=== PATIENT | female | born 1940 | race Caucasian/White ===

== ENCOUNTER 2016-05-26 09:52 | Emergency (ER) | payer OTHER, MEDICARE ==
[2016-05-26 10:06] VITALS: O2SAT 93
--- NOTE | 2016-05-26 11:22 | EDPHY ---
General Narrative: CHIEF COMPLAINT: Fall, knee pain HISTORY OF PRESENT ILLNESS: Patient says she was exiting her residence today when she slipped on the ice and fell on her right knee. She fell directly on the knee with bent. She knows sudden onset of pain in that knee. Some mild to moderate pain. Does not radiate. Worse with palpation and ambulation. It is minimal compared to the pain in the left knee she has after falling again later. Left knee fell with a described valgus injury. She has pain primarily over the medial aspect of the left knee that is moderate to severe. It is also worse with palpation and movement. Improved with rest and elevation. No radiating pain. No numbness or tingling. No weakness distally. She is primarily complains she has status post bilateral total knee arthroplasty and wants to make sure that her hardware is intact no other associated complaints or modifying factors. PRIOR ORTHO INJURIES: Bilateral TKAs ESTABLISHED ORTHOPEDIST: Dr. Darling REVIEW OF SYSTEMS: Ten systems reviewed and are negative unless otherwise noted in the HPI EXAMINATION General Appearance: Alert, no distress Cardiovascular: Pulses normal throughout. Symmetric DP pulses at 2+. Symmetric PT pulses are 2+. Brisk cap refill Neurological: A&O, sensory symmetric, strength symmetric Skin: Warm and dry, no rash. No lacerations, abrasions or contusions. There are well-healed surgical incisions on both knees consistent with DKA. Extremities: Both knees are tender to palpation. The right knee more so along the joint line. There is no crepitus of either knee. There is no instability of either knee. The left knee has more tenderness over the MCL than otherwise. There is no difficulty with range of motion. In range of motion is symmetric in both knees. Range of motion of both ankles and hips are fully intact. All compartments are soft in the lower extremities. Neurovascular intact distal to the knee pain. Psychiatric: Mood and affect normal DIFFERENTIAL DIAGNOSES: Including but not limited to contusion, sprain, strain, fracture, hardware injury MDM: 11:20 a.m. Mechanical fall that resulted in contusion of the right knee and I suspect an MCL sprain of the left knee. Hardware is in anatomic alignment on the x-rays. There is no obvious fracture. She does have degeneration/osteoarthritis of both knees. She is ambulating without complication. No evidence of fracture anywhere else by examination or history. Discharged home with Zuiel wrap over the left knee and she will follow up with her established orthopedist Dr. wilde with. Patient is comfortable this plan, she is discharged home ambulatory and neurovascular intact ED Precautions: Worsening pain. Erythema, edema, cyanosis, pallor, paresthesia or anesthesia. SUPERVISION: This patient was independently evaluated without direct examination by the attending physician. Case was discussed with attending physician. - Diagnostics Imaging: I viewed and interpreted images myself Imaging Results: Imaging Impressions Knee X-Ray 05/26/16 10:16 Impression: 1. Negative. No acute fracture. 2. Bilateral knee arthroplasties are anatomically aligned. Knee X-Ray 05/26/16 10:18 Impression: 1. Negative. No acute fracture. 2. Bilateral knee arthroplasties are anatomically aligned. - History Smoking Status: Never smoked - Objective Vital Signs: Initial Vital Signs Temperature (C) 98.1 F 05/26/16 10:04 Heart Rate 92 05/26/16 10:04 Respiratory Rate 20 05/26/16 10:04 Blood Pressure 172/96 H 05/26/16 10:04 O2 Sat (%) 93 05/26/16 10:04 O2 Delivery Mode Room Air Allergies/Adverse Reactions: amoxicillin [Amoxicillin] Allergy (Intermediate, Verified 05/26/16 10:00) Rash methylprednisolone [Methylprednisolone] Allergy (Intermediate, Verified 10:00) [place] Home Medications: Medication Instructions Recorded Cyclobenzaprine [Flexeril 10 MG 10 mg PO HS 07/20/13 (*)] Propranolol HCl [Inderal 20mg (*)] 20 mg PO DAILY 07/20/13 Zolpidem Tartrate [Ambien 5MG (*)] 5 mg PO HS 07/20/13 metFORMIN HCL [Glucophage 500 mg 500 mg PO BIDMEAL 07/20/13 (*)] LORazepam [Ativan (*)] 1 mg PO DAILY PRN 08/15/14 Omeprazole [Prilosec] 40 mg PO DAILY 08/15/14 Pravastatin Sodium [Pravachol] 10 mg PO HS 08/15/14 glipiZIDE XL [Glucotrol XL 10 MG 10 mg PO DAILY 08/15/14 (*)] Guaifenesin [Guaifenesin ER] 600 mg PO BID #14 tab.er.12h 11/04/16 IBUPROFEN 12/26/15 Departure - Departure Disposition: Home, Routine, Self-Care Clinical Impression: Contusion of knee, right Qualifiers: Encounter type: initial encounter Qualified Code(s): S80.01XA - Contusion of right knee, initial encounter Contusion of left knee Qualifiers: Encounter type: initial encounter Qualified Code(s): S80.02XA - Contusion of left knee, initial encounter Sprain of medial collateral ligament of left knee Qualifiers: Encounter type: initial encounter Qualified Code(s): S83.412A - Sprain of medial collateral ligament of left knee, initial encounter Condition: Good Instructions: Knee Sprain (ED), Osteoarthritis (ED), Knee Pain (ED) Additional Instructions: Ice and elevate the leg today. Weightbearing as tolerated. Follow up with established orthopedist. Return to ER for any new areas of pain Referrals: Mariano Darling MD [Medical Doctor] - As per Instructions
[2016-05-26 12:03] VITALS: BP 159/95; PULSE 90; RESP 18; TEMP 97.9
== END 2016-05-26 12:01 | disposition home or self-care (01) ==
DX: S83.412A Sprain of medial collateral ligament of left knee, initial encounter (principal); S80.01XA Contusion of right knee, initial encounter; S80.02XA Contusion of left knee, initial encounter; Z96.653 Presence of artificial knee joint, bilateral; W00.9XXA Unspecified fall due to ice and snow, initial encounter

== ENCOUNTER → 2016-06-08 | Outpatient (CLI) | payer OTHER, MEDICARE | LOC: FIMAGING 11:57 | DX: Z12.31 Encounter for screening mammogram for malignant neoplasm of breast (principal) | CPT/HCPCS: G0202 ==

== ENCOUNTER 2016-12-26 07:15 | Emergency (ER) | payer OTHER, MEDICARE ==
[2016-12-26 07:24] VITALS: TEMP 97.9
[2016-12-26] MEDS ORDERED: NS 1,000 ML IV ONE (08:05)
[2016-12-26 08:22] LABS: PLATELET COUNT 225 10^3/uL (150-400)
--- NOTE | 2016-12-26 08:22 | EDPHY ---
H & P Time Seen by Provider: 12/26/16 07:47 HPI/ROS: CHIEF COMPLAINT: Cough, headache HISTORY OF PRESENT ILLNESS: 76-year-old female presents with cough and headache. Onset of nasal congestion and sore throat 3 days ago. Associated with a productive cough, onset 2 days ago. She also has a moderate headache, which waxes and wanes. Associated with subjective fever last night, lack of appetite and nausea. No vomiting or diarrhea. She received a flu vaccination this year. REVIEW OF SYSTEMS: Constitutional: no chills Eyes: No visual changes ENT: No sore throat Respiratory: no shortness of breath Cardiac: No chest pain Gastrointestinal: No nausea, no vomiting, no abdominal pain Genitourinary: no dysuria Musculoskeletal: No leg pain or swelling Skin: No rash Neurological: no numbness, no weakness Psychiatric: No depression Past Medical/Surgical History: Diabetes Pneumonia Social History: PCP: Dr. Meza Smoking Status: Never smoked Physical Exam: General Appearance: Alert, pleasant, reading the newspaper as I enter the room Eyes: Pupils equal and round, no conjunctival pallor or injection ENT, Mouth: Mucous membranes moist, right TM occluded by cerumen, left EM normal Neck: Normal inspection, supple Respiratory: Lungs are clear to auscultation Cardiovascular: Regular rate and rhythm Gastrointestinal: Abdomen is soft and nontender Neurological: A&O, nonfocal, normal gait Skin: Warm and dry, no rash Extremities: normal inspection Psychiatric: Mood and affect normal Constitutional: Initial Vital Signs Temperature (C) 36.6 C 12/26/16 07:21 Heart Rate 121 H 12/26/16 07:21 Respiratory Rate 20 12/26/16 07:21 Blood Pressure 169/82 H 12/26/16 07:21 O2 Sat (%) 95 12/26/16 07:21 O2 Delivery Mode Room Air Allergies/Adverse Reactions: amoxicillin [Amoxicillin] Allergy (Intermediate, Verified 12/26/16 07:19) Rash methylprednisolone [Methylprednisolone] Allergy (Intermediate, Verified 07:19) [place] Home Medications: Medication Instructions Recorded Cyclobenzaprine [Flexeril 10 MG 10 mg PO HS 07/20/13 (*)] Propranolol HCl [Inderal 20mg (*)] 20 mg PO DAILY 07/20/13 Zolpidem Tartrate [Ambien 5MG (*)] 5 mg PO HS 07/20/13 metFORMIN HCL [Glucophage 500 mg 500 mg PO BIDMEAL 07/20/13 (*)] LORazepam [Ativan (*)] 1 mg PO DAILY PRN 08/15/14 Omeprazole [Prilosec] 40 mg PO DAILY 08/15/14 Pravastatin Sodium [Pravachol] 10 mg PO HS 08/15/14 glipiZIDE XL [Glucotrol XL 10 MG 10 mg PO DAILY 08/15/14 (*)] IBUPROFEN 12/26/15 guaiFENesin [Guaifenesin ER] 600 mg PO BID #14 tab.er.12h 12/26/15 Doxycycline Hyclate 100 mg PO BID #20 tablet 12/26/16 Ondansetron Odt [Zofran Odt 4 mg 4 mg PO Q4 PRN #6 tab 12/26/16 (*)] Medical Decision Making - Diagnostics Imaging Results: Imaging Impressions Chest X-Ray 12/26/16 08:17 Impression: No acute findings in the chest. ED Course/Re-evaluation: Clinical presentation concerning for pneumonia. She presents with tachycardia, subjective fever and cough. She is afebrile. IV fluids given for dehydration. Chest x-ray and flu swab ordered. I do not suspect meningitis in this patient , given that she is reading a newspaper, smiling and is nontoxic appearing. Results discussed with the patient. She feels better after IV fluids. I have encouraged oral fluids at home. Given her history of diabetes and advanced age , I wrote a prescription for doxycycline for clinical suspicion of pneumonia. She will return for shortness of breath, worsening symptoms, any concerns. PCP follow-up in 1-2 days. Differential Diagnosis: Differential diagnosis includes but is not limited to pneumonia, otitis media, peritonsillar abscess, retropharyngeal abscess, meningitis. - Data Points Laboratory Results: Laboratory Results 12/26/16 08:00 12/26/16 08:00 12/26/16 12/26/16 12/26/16 08:25 08:25 08:00 WBC RBC Hgb Hct MCV MCH MCHC RDW Plt Count MPV Neut % (Auto) Lymph % (Auto) [place] % (Auto) Eos % (Auto) Baso % (Auto) Nucleat RBC Rel Count Absolute Neuts (auto) Absolute Lymphs (auto) Absolute Monos (auto) Absolute Eos (auto) Absolute Basos (auto) Absolute Nucleated RBC Immature Gran % Immature Gran # VBG Lactic Acid 1.3 mmol/L mmol/L (0.7-2.1) Sodium 140 mEq/L mEq/L (134-144) Potassium 4.1 mEq/L mEq/L (3.5-5.2) Chloride 107 mEq/L mEq/L (97-110) Carbon Dioxide 22 mEq/l mEq/l (22-31) Anion Gap 11 mEq/L mEq/L (8-16) BUN 10 mg/dL mg/dL (7-23) Creatinine 0.7 mg/dL mg/dL (0.6-1.0) Estimated GFR > 60 Glucose 152 mg/dL H mg/dL (70-100) Calcium 9.2 mg/dL mg/dL (8.5-10.4) Nasal Influenza A PCR NEGATIVE FOR FLU A (NEGATIVE) Nasal Influenza B PCR NEGATIVE FOR FLU B (NEGATIVE) 12/26/16 08:00 WBC 8.33 10^3/uL 10^3/uL (3.80-9.50) RBC 4.83 10^6/uL 10^6/uL (4.18-5.33) Hgb 15.3 g/dL g/dL (12.6-16.3) Hct 43.6 % % (38.0-47.0) MCV 90.3 fL fL (81.5-99.8) MCH 31.7 pg pg (27.9-34.1) MCHC 35.1 g/dL g/dL (32.4-36.7) RDW 13.4 % % (11.5-15.2) Plt Count 225 10^3/uL 10^3/uL (150-400) MPV 10.3 fL fL (8.7-11.7) Neut % (Auto) 73.6 % % (39.3-74.2) Lymph % (Auto) 14.5 % L % (15.0-45.0) [place] % (Auto) 9.2 % % (4.5-13.0) Eos % (Auto) 1.9 % % (0.6-7.6) Baso % (Auto) 0.4 % % (0.3-1.7) Nucleat RBC Rel Count 0.0 % % (0.0-0.2) Absolute Neuts (auto) 6.13 10^3/uL 10^3/uL (1.70-6.50) Absolute Lymphs (auto) 1.21 10^3/uL 10^3/uL (1.00-3.00) Absolute Monos (auto) 0.77 10^3/uL 10^3/uL (0.30-0.80) Absolute Eos (auto) 0.16 10^3/uL 10^3/uL (0.03-0.40) Absolute Basos (auto) 0.03 10^3/uL 10^3/uL (0.02-0.10) Absolute Nucleated RBC 0.00 10^3/uL 10^3/uL (0-0.01) Immature Gran % 0.4 % % (0.0-1.1) Immature Gran # 0.03 10^3/uL 10^3/uL (0.00-0.10) VBG Lactic Acid Sodium Potassium Chloride Carbon Dioxide Anion Gap BUN Creatinine Estimated GFR Glucose Calcium Nasal Influenza A PCR Nasal Influenza B PCR Medications Given: Discontinued Medications Sodium Chloride (Ns) 1,000 mls @ 0 mls/hr IV ONCE ONE PRN Reason: Wide [place] Stop: 12/26/16 08:06 Last Admin: 12/26/16 08:15 Dose: 1,000 mls Ibuprofen (Motrin) 600 mg PO EDNOW ONE Stop: 12/26/16 08:54 Last Admin: 12/26/16 08:59 Dose: 600 mg Departure - Departure Disposition: Home, Routine, Self-Care Clinical Impression: Acute bronchitis Qualifiers: Bronchitis organism: unspecified organism Qualified Code(s): J20.9 - Acute bronchitis, unspecified Condition: Good Instructions: Acute Bronchitis (ED) Additional Instructions: Drink plenty of fluids. Ibuprofen as needed for fever and headache. Return for worsening symptoms or any concerns. Referrals: Mindy Meza MD [Primary Care Provider] - As per Instructions Prescriptions: Doxycycline Hyclate 100 mg PO BID #20 tablet Ondansetron Odt [Zofran Odt 4 mg (*)] 4 mg PO Q4 PRN #6 tab PRN Reason: Nausea
[2016-12-26] MEDS ORDERED: IBUPROFEN 600 MG TAB PO ONE (08:53)
[2016-12-26 09:03] VITALS: BP 140/90; PULSE 95; RESP 16; O2SAT 96
== END 2016-12-26 09:04 | disposition home or self-care (01) ==
LOC: SUPCPDRO 07:15
DX: J20.9 Acute bronchitis, unspecified (principal); E11.9 Type 2 diabetes mellitus without complications

== ENCOUNTER 2017-02-16 10:13 | Emergency (ER) | payer OTHER, MEDICARE ==
[2017-02-16 10:23] VITALS: BP 157/106; PULSE 100; RESP 16; TEMP 98.1; O2SAT 93
--- NOTE | 2017-02-16 10:32 | EDPHY ---
H & P Stated Complaint: R arm pain Time Seen by Provider: 02/16/17 10:26 HPI/ROS: CHIEF COMPLAINT: Right shoulder pain HISTORY OF PRESENT ILLNESS: The patient presents to the ED with complaints of mechanical right shoulder pain for the past 2 days. The patient may have injured the shoulder while lifting a ladder or driving her vehicle. She did not have a direct fall or trauma. The patient reports it is painful to sleep on her right shoulder. She denies fever or recent illness. She is not anticoagulated. The patient denies any associated numbness or weakness. REVIEW OF SYSTEMS: A comprehensive 10 point review of systems is otherwise negative aside from elements mentioned in the history of present illness. Source: Patient Exam Limitations: No limitations - Personal History Current Tetanus/Diphtheria Vaccine: Yes Current Tetanus Diphtheria and Acellular Pertussis (TDAP): Yes Tetanus Vaccine Date: 02/2010 - Medical/Surgical History Hx Asthma: No Hx Chronic Respiratory Disease: No Hx Diabetes: Yes Hx Cardiac Disease: Yes Hx Renal Disease: No Hx Cirrhosis: No Hx Alcoholism: No Hx HIV/AIDS: No Hx Splenectomy or Spleen Trauma: No Other PMH: HTN elevated lipids,GERD,NIDDM type 2, thyroid surgery 08/04, hysterecytomy, tonsillectomy, bilat knee replacement, appendectomy, cholecystectomy - Social History Smoking Status: Never smoked - Physical Exam Exam: General Appearance: Alert, no distress Eyes: Pupils equal and round no pallor or injection ENT, Mouth: Mucous membranes moist Respiratory: There are no retractions, lungs are clear to auscultation Cardiovascular: Regular rate and rhythm Gastrointestinal: Abdomen is soft and nontender, no masses, bowel sounds normal Neurological: A&O, normal motor function, normal sensory exam, normal cranial nerves Skin: Warm and dry, no rashes Musculoskeletal: Neck is supple nontender Extremities: Tenderness to palpation over the right proximal biceps, 2+ radial and ulnar pulses noted in the right upper extremity Constitutional: Initial Vital Signs Temperature (C) 36.7 C 02/16/17 10:20 Heart Rate 100 02/16/17 10:20 Respiratory Rate 16 02/16/17 10:20 Blood Pressure 157/106 H 02/16/17 10:20 O2 Sat (%) 93 02/16/17 10:20 O2 Delivery Mode Room Air Allergies/Adverse Reactions: amoxicillin [Amoxicillin] Allergy (Intermediate, Verified 02/16/17 10:18) Rash methylprednisolone [Methylprednisolone] Allergy (Intermediate, Verified 10:18) [place] Home Medications: Medication Instructions Recorded Propranolol HCl [Inderal 20mg (*)] 20 mg PO DAILY 07/20/13 Zolpidem Tartrate [Ambien 5MG (*)] 5 mg PO HS 07/20/13 metFORMIN HCL [Glucophage 500 mg 500 mg PO BIDMEAL 07/20/13 (*)] LORazepam [Ativan (*)] 1 mg PO DAILY PRN 08/15/14 Omeprazole [Prilosec] 40 mg PO DAILY 08/15/14 Pravastatin Sodium [Pravachol] 10 mg PO HS 08/15/14 glipiZIDE XL [Glucotrol XL 10 MG 10 mg PO DAILY 08/15/14 (*)] guaiFENesin [Guaifenesin ER] 600 mg PO BID #14 tab.er.12h 12/26/15 Hydrocodone/APAP 5/325 [[place] 1 - 2 each PO Q6 PRN #20 tab 02/16/17 5/325] Medical Decision Making - Diagnostics Imaging Results: Right shoulder x-ray: Images reviewed by myself, negative for acute fracture, DJD is noted. ED Course/Re-evaluation: The patient presents to the emergency department with right shoulder pain. She has no evidence of an obvious fracture noted on her x-ray but does have mild DJD. Her examination is consistent with a biceps tendon strain. The patient will be advised to take anti-inflammatories. She is given a prescription for Vicodin for more severe pain. She should follow up with her regular orthopedic surgeon for any unimproved symptoms. Departure - Departure Disposition: Home, Routine, Self-Care Clinical Impression: Right shoulder strain Condition: Good Instructions: Rotator Cuff Injury (ED) Additional Instructions: 1. Take Ibuprofen or Motrin 600 mg by mouth three times a day. 2. [place] as needed for severe pain 3. Please follow up with your orthopedic surgeon for any symptoms which are unimproved past 7-10 days. Referrals: Mariano Darling MD [Medical Doctor] - As per Instructions
== END 2017-02-16 11:15 | disposition home or self-care (01) ==
DX: S46.911A Strain of unspecified muscle, fascia and tendon at shoulder and upper arm level, right arm, initial encounter (principal); I10 Essential (primary) hypertension; E11.9 Type 2 diabetes mellitus without complications; Z79.84 Long term (current) use of oral hypoglycemic drugs; X58.XXXA Exposure to other specified factors, initial encounter

== ENCOUNTER 2017-04-16 19:19 | Inpatient (IN) | payer OTHER, MEDICARE ==
[2017-04-16] MEDS ORDERED: IPRATROPIUM/ALBUTEROL 3 ML DEYVIAL IH ONE (19:42)
--- NOTE | 2017-04-16 19:42 | EDPHY ---
H & P Time Seen by Provider: 04/16/17 19:35 HPI/ROS: CHIEF COMPLAINT: Cough and shortness of breath HISTORY OF PRESENT ILLNESS: Patient initially got sick about a week ago and was seen on Tuesday at urgent care and diagnosed with pneumonia and just finished 5 days of oral Levaquin. She presents today with severe symptoms including nonproductive cough and worsening shortness of breath. No sputum and intermittent fever. Chest pain with the cough but not at rest. She has a little bit of nausea and decreased oral intake. Shortness of breath severe and is worse with any exertion. Not associated with leg swelling or leg pain. No hemoptysis. No recent travel or immobilization and no history of DVT or PE. REVIEW OF SYSTEMS: Eye: no change in vision ENT: no sore throat Cardiac: HPI no syncope Pulmonary: HPI, she says she is very wheezy and is been up at night hearing herself wheeze. Abdomen: no vomiting, diarrhea, abdominal pain, decreased oral intake Musculoskeletal: no back pain Skin: no rash Neuro: no headache Constitutional: Subjective fever and chills : no urinary symptoms A comprehensive 10 point review of systems is otherwise negative aside from elements mentioned in the history of present illness. PAST MEDICAL HISTORY: Includes hypertension, diabetes, thyroid surgery, hysterectomy and tonsillectomy, appendectomy and cholecystectomy. Knee replacements. Social history: Nonsmoker General Appearance: Alert and conversant, cooperative. Eyes: No scleral icterus. ENT, Mouth: Normal mucous membranes. Respiratory: Bilateral slight expiratory wheezes, able to speak in full sentences on oxygen, 89% on room air. Cardiovascular: Regular rate and rhythm. Tachycardic Gastrointestinal: Abdomen is soft and non tender. Neurological: Alert, face symmetric, normal motor and sensory in extremities. Skin: Warm and dry, no rashes. Musculoskeletal: No peripheral edema. Psychiatric: Not agitated. Emergency Department course/MDM: Patient presents with need for admission, with outpatient failure of pneumonia. Tachycardia and hypoxemic, supplemental oxygen applied for saturation in the 80s. Plan for chest x-ray and lactate screening, CBC and chemistries. Respiratory panel. 2043: No pneumonia on chest x-ray, albuterol neb and states allergy to methylprednisolone, think pulmonary embolism would be less likely. For now will hold off on steroids, supportive care, D-dimer sent. At this point I think that viral infection such as influenza or other respiratory illnesses likely, I think pneumonia is less likely. I do not think she has acute infection and antibiotics are not currently indicated given the clinical picture at this time. 2101: D-dimer is 0.67 which is less than point 1 times age, do not think further evaluation for pulmonary embolism indicated with this value. Relatively low pretest probability for venous thromboembolism. Smoking Status: Never smoked Constitutional: Initial Vital Signs Temperature (C) 36.7 C 04/16/17 19:23 Heart Rate 119 H 04/16/17 19:23 Respiratory Rate 18 04/16/17 19:23 Blood Pressure 177/90 H 04/16/17 19:23 O2 Sat (%) 89 L 04/16/17 19:23 O2 Delivery Mode Room Air O2 (L/minute) 2 Allergies/Adverse Reactions: amoxicillin [Amoxicillin] Allergy (Intermediate, Verified 04/16/17 19:26) Rash methylprednisolone [Methylprednisolone] Allergy (Intermediate, Verified 19:26) [place] Home Medications: Medication Instructions Recorded Propranolol HCl [Inderal 20mg (*)] 20 mg PO DAILY 07/20/13 Zolpidem Tartrate [Ambien 5MG (*)] 5 mg PO HS 07/20/13 metFORMIN HCL [Glucophage 500 mg 500 mg PO BIDMEAL 07/20/13 (*)] LORazepam [Ativan (*)] 1 mg PO DAILY PRN 08/15/14 Omeprazole [Prilosec] 40 mg PO DAILY 08/15/14 Pravastatin Sodium [Pravachol] 10 mg PO HS 08/15/14 glipiZIDE XL [Glucotrol XL 10 MG 10 mg PO DAILY 08/15/14 (*)] Hydrocodone/APAP 5/325 [[place] 1 - 2 each PO Q6 PRN #20 tab 02/16/17 5/325] Lidocaine 5% [Lidoderm 5% Patch] 1 ea TD DAILY #30 patch 02/16/17 Medical Decision Making - Diagnostics EKG Interpretation: 12-lead EKG interpreted by me; official reading is in trace master. My interpretation is sinus tachycardia otherwise normal, no ischemic changes. Imaging Results: Chest x-ray personally interpreted shows reactive airway disease but no pneumonia. Imaging: I viewed and interpreted images myself Differential Diagnosis: Differential diagnosis considered for shortness of breath including but not limited to pulmonary infectious process, COPD, asthma, pulmonary embolus and congestive heart failure. Consult/Admit Bed Type: [place] [id number] - Data Points Laboratory Results: Laboratory Results 04/16/17 19:57 04/16/17 19:57 04/16/1718 04/16/17 19:57 19:57 19:57 WBC 8.98 10^3/uL 10^3/uL (3.80-9.50) RBC 4.85 10^6/uL 10^6/uL (4.18-5.33) Hgb 14.9 g/dL g/dL (12.6-16.3) Hct 42.7 % % (38.0-47.0) MCV 88.0 fL fL (81.5-99.8) MCH 30.7 pg pg (27.9-34.1) MCHC 34.9 g/dL g/dL (32.4-36.7) RDW 13.3 % % (11.5-15.2) Plt Count 166 10^3/uL 10^3/uL (150-400) MPV 10.2 fL fL (8.7-11.7) Neut % (Auto) 84.6 % H % (39.3-74.2) Lymph % (Auto) 8.9 % L % (15.0-45.0) [place] % (Auto) 6.0 % % (4.5-13.0) Eos % (Auto) 0.0 % L % (0.6-7.6) Baso % (Auto) 0.1 % L % (0.3-1.7) Nucleat RBC Rel Count 0.0 % % (0.0-0.2) Absolute Neuts (auto) 7.59 10^3/uL H 10^3/uL (1.70-6.50) Absolute Lymphs (auto) 0.80 10^3/uL L 10^3/uL (1.00-3.00) Absolute Monos (auto) 0.54 10^3/uL 10^3/uL (0.30-0.80) Absolute Eos (auto) 0.00 10^3/uL L 10^3/uL (0.03-0.40) Absolute Basos (auto) 0.01 10^3/uL L 10^3/uL (0.02-0.10) Absolute Nucleated RBC 0.00 10^3/uL 10^3/uL (0-0.01) Immature Gran % 0.4 % % (0.0-1.1) Immature Gran # 0.04 10^3/uL 10^3/uL (0.00-0.10) PT 12.9 SEC SEC (12.0-15.0) INR 0.95 (0.83-1.16) APTT 26.9 SEC SEC (23.0-38.0) D-Dimer 0.67 ug/mLFEU H ug/mLFEU (0.00-0.50) VBG Lactic Acid Sodium 137 mEq/L mEq/L (135-145) Potassium 4.0 mEq/L mEq/L (3.5-5.2) Chloride 102 mEq/L mEq/L (97-110) Carbon Dioxide 23 mEq/l mEq/l (22-31) Anion Gap 12 mEq/L mEq/L (8-16) BUN 11 mg/dL mg/dL (7-23) Creatinine 0.6 mg/dL mg/dL (0.6-1.0) Estimated GFR > 60 Glucose 211 mg/dL H mg/dL (70-100) Calcium 9.5 mg/dL mg/dL (8.5-10.4) Total Bilirubin 0.6 mg/dL mg/dL (0.1-1.4) 04/16/17 19:57 WBC RBC Hgb Hct MCV MCH MCHC RDW Plt Count MPV Neut % (Auto) Lymph % (Auto) [place] % (Auto) Eos % (Auto) Baso % (Auto) Nucleat RBC Rel Count Absolute Neuts (auto) Absolute Lymphs (auto) Absolute Monos (auto) Absolute Eos (auto) Absolute Basos (auto) Absolute Nucleated RBC Immature Gran % Immature Gran # PT INR APTT D-Dimer VBG Lactic Acid 2.0 mmol/L mmol/L (0.7-2.1) Sodium Potassium Chloride Carbon Dioxide Anion Gap BUN Creatinine Estimated GFR Glucose Calcium Total Bilirubin Medications Given: Discontinued Medications Albuterol (Proventil Neb) 3 ml IH EDNOW ONE Stop: 04/16/17 20:45 Last Admin: 04/16/17 21:01 Dose: 3 ml Albuterol/Ipratropium (Duoneb) 3 ml IH EDNOW ONE Stop: 04/16/17 19:43 Last Admin: 04/16/17 20:09 Dose: 3 ml Sodium Chloride (Ns) 1,000 mls @ 0 mls/hr IV EDNOW ONE; Wide Open PRN Reason: Protocol Stop: 04/16/17 20:37 Last Admin: 04/16/17 20:20 Dose: 1,000 mls Departure - Departure Disposition: [facility] Acute Clinical Impression: Reactive airway disease Qualifiers: Asthma severity: moderate Asthma persistence: persistent Asthma complication type: with acute exacerbation Qualified Code(s): J45.41 - Moderate persistent asthma with (acute) exacerbation Condition: Good Referrals: Mindy Meza MD [Primary Care Provider] - As per Instructions
[2017-04-16 20:11] LABS: PLATELET COUNT 166 10^3/uL (150-400)
[2017-04-16 20:20] LABS: INR 0.95 (0.83-1.16); PROTIME(PATIENT) 12.9 SEC (12.0-15.0)
[2017-04-16] MEDS ORDERED: NS 1,000 ML IV ONE (20:36)
[2017-04-16] MEDS ORDERED: ALBUTEROL 3 ML DEYVIAL IH ONE (20:44)
--- NOTE | 2017-04-16 20:49 | CPEKG ---
Heart Rate: 106 RR Interval: 566 P-R Interval: 156 QRSD Interval: 66 QT Interval: 352 QTC Interval: 468 P [place]: 55 QRS [place]: 16 T Wave [place]: 33 EKG Severity - OTHERWISE NORMAL ECG - EKG Impression: SINUS TACHYCARDIA Electronically Signed By: Jonathan Leon 16-Apr-2017 20:49:39
[2017-04-16] MEDS ORDERED: ALBUTEROL 3 ML DEYVIAL IH PRN (21:01)
[2017-04-16] MEDS ORDERED: ACETAMINOPHEN 325 MG TAB PO PRN (21:01)
[2017-04-16] MEDS ORDERED: ONDANSETRON DISINTEGRATING 4 MG TAB PO PRN (21:01)
[2017-04-16] MEDS ORDERED: ONDANSETRON 4 MG/2 ML VIAL IVP PRN (21:01)
[2017-04-16] MEDS ORDERED: IOPAMIDOL (ISOVUE 370) 100 ML BTL IV ONE (21:30)
[2017-04-16] MEDS ORDERED: LORazepam 1 MG TAB PO PRN (22:05)
[2017-04-16] MEDS ORDERED: HYDROCODONE/APAP 5/325 TAB PO PRN (22:05)
[2017-04-16] MEDS ORDERED: ACETAMINOPHEN 500 MG TAB PO ONE (22:07)
[2017-04-16] MEDS ORDERED: ZOLPIDEM TARTRATE 5 MG TAB PO SCH (22:15)
--- NOTE | 2017-04-16 22:30 | GHP ---
[f rep st] HISTORY AND PHYSICAL DATE OF ADMISSION: 04/16/2017 CHIEF COMPLAINT: Shortness of breath. HISTORY OF PRESENT ILLNESS: This is a 76-year-old female with a history of diabetes and hypertension , who presents with approximately 10 days total of progressive shortness of breath, nonproductive cou gh, subjective fevers and chills. Patient initially presented to the walk-in clinic with concerns fo r her shortness of breath. Was diagnosed with pneumonia, and given a 5-day course of levofloxacin. Patient completed a course of antibiotics today. She presented to the emergency department with pers istent and, in fact, worsening shortness of breath, continued subjective fevers and chills, fatigue, and lethargy. Reports some nausea. No vomiting. Reports loose stools. No diarrhea. Denies any dy suria, hematuria, lower extremity edema, or fevers. 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 She is quite worn down in the home subsequent to that care. PAST MEDICAL HISTORY: 1. Diabetes. 2. Hypertension. 3. Recent shoulder injury, awaiting surgery. 4. Migraines. SOCIAL HISTORY: Negative for tobacco, alcohol, or illicit drugs. FAMILY HISTORY: Positive for migraines. ADVANCED DIRECTIVES: The patient is full cor, full tube. Her grandson would be her medical decision maker. PHYSICAL EXAMINATION: VITAL SIGNS: Blood pressure is 177/90, heart rate 119, previous baselines em ear to be in the 90s, respiratory rate 18 saturating 83% on room air. GENERAL: This is an ill-appea ring middle-aged female. HEENT: Notable for dry mucous membranes. Eye exam is negative for any ict erus. CARDIAC: Patient is tachycardic, but regular. PULMONARY: Patient is clear to my auscultatio n. No expiratory wheezes are appreciated. GASTROINTESTINAL: Positive bowel sounds. ABDOMEN: Soft and nontender. MUSCULOSKELETAL: Negative for any lower extremity edema. SKIN: Exam is negative f or any rashes. NEUROLOGIC: She is alert and oriented x3. PSYCHIATRIC: She is pleasant and coopera tive on interview and examination. DATA: Chest x-ray, which I personally reviewed and interpreted, shows no acute lobar infiltrates. R adiology comments on airways disease. LABORATORY: Patient's white count is 8.9, hematocrit 42.7, platelets of 166. Creatinine is 0.6. D- dimer is 0.67. ASSESSMENT AND PLAN: This is a 76-year-old female presenting with acute hypoxic respiratory failure. 1. Acute hypoxic respiratory failure. Suspect on the timeline that the patient likely is experienci ng a prolonged viral syndrome and/or a secondary bacterial conversion. Patient is not wheezing on my examination, but sounds as if she was quite wheezy during her initial presentation to the emergency department. Will initially treat with prednisone, steroids, and inhaled beta agonists to assist with reactive airways disease. Patient remains quite tachycardic, which is well off her baseline, even p rior to receiving a beta agonist in the emergency department. A CT chest has been ordered to rule ou t pulmonary embolism and will afford us a better look at her lung parenchyma to decide on prolonged a ntibiotic course or not. Blood cultures have been drawn in the emergency department. We will await results from those as well to further guide antibiotic choices. 2. Migraine headaches. We will continue her home medications as needed. 3. History of hypertension. Patient's blood pressures are mildly elevated. Will continue her home medications without alteration. 4. Prophylaxis with Lovenox. DIET: Regular. DISPOSITION: I expect greater than 2 midnights, as the patient is presenting, feeling quite ill, req uiring additional diagnostic workup and IV fluids for resuscitation and monitoring. I discussed the case with the emergency room physician. Patient will be triaged to the medical-surgical floor for ca re. /[id number]/MODL
[2017-04-16] MEDS: predniSONE 20 MG TAB PO SCH (23:30)
--- NOTE | 2017-04-17 03:08 | PDMN ---
Medical Necessity Medical necessity: C/M review: est. > 2 MN LOS for eval and TX of acute and persistent hypoxic respiratory failure, suspect prolonged viral syndrome and / or a secondary bacterial conversion, shortness of breath, requiring IV fluids, ongoing Duonebs, oral prednisone, pulse oximetry, supplemental O2, comorbid diagnosed with pneumonia treated with 5 day course of oral levofloxacin prior to this admission, diabetes, hypertension, migraines per H/P.
[2017-04-17] MEDS: IPRATROPIUM/ALBUTEROL 3 ML DEYVIAL IH SCH ×2 (05:57→10:48)
[2017-04-17] MEDS: predniSONE 20 MG TAB PO SCH (08:03)
[2017-04-17] MEDS ORDERED: LIDOCAINE 4%/MENTHOL 1% PATCH TD SCH (09:00)
[2017-04-17] MEDS ORDERED: PANTOPRAZOLE SODIUM 40 MG TAB PO SCH (09:00)
[2017-04-17] MEDS ORDERED: PROPRANOLOL HCL 20 MG TAB PO SCH (09:00)
[2017-04-17] MEDS ORDERED: ENOXAPARIN 40 MG/0.4 ML SYR SC SCH (09:00)
[2017-04-17] MEDS ORDERED: OSELTAMIVIR PHOSPHATE 75 MG CAP PO SCH (10:15)
--- NOTE | 2017-04-17 10:48 | PDHOMEO2F ---
Home Oxygen Face to Face Home Orders: I certify that a physician or a nurse practitioner or physician's acute care nursing assistant has had a [id number] encounter with this patient on the date of this order due to the diagnosis listed, which relates to the primary reason the patient requires home oxygen. Alternative treatments have been tried, or considered, and deemed ineffective. It is anticipated that supplemental oxygen will result in improvement with treatment. Home oxygen qualifying diagnosis: copd, obestiy hypoventilation SpO2 on room air (%): 85 Frequency of home oxygen needed: continuous Home oxygen liters per minute: 3 Home oxygen delivery device: nasal cannula Concentrator: Yes E-tanks for mobility and back up: Yes If ordering portable O2, is the patient mobile in the home?: Yes I certify that, based on these findings, the home oxygen is medically necessary for this patient for the following length of time. Length of time home oxygen needed: 1 month
--- NOTE | 2017-04-17 10:49 | PDIAF ---
- Diagnosis Diagnosis: influenza B Code Status: Full Code - Medication Management Discharge Medications: Medications to Continue on Transfer Propranolol HCl [Inderal 20mg (*)] 20 mg PO DAILY 07/20/13 [Last Taken 04/15/17] Zolpidem Tartrate [Ambien 5MG (*)] 5 mg PO HS 07/20/13 [Last Taken 04/15/17] metFORMIN HCL [Glucophage 500 mg (*)] 500 mg PO BIDMEAL 07/20/13 [Last Taken ] LORazepam [Ativan (*)] 1 mg PO DAILY PRN 08/15/14 [Last Taken 04/06/17] Omeprazole [Prilosec] 40 mg PO DAILY 08/15/14 [Last Taken 04/15/17] Pravastatin Sodium [Pravachol] 10 mg PO HS 08/15/14 [Last Taken 04/15/17] glipiZIDE XL [Glucotrol XL 10 MG (*)] 10 mg PO DAILY 08/15/14 [Last Taken ] Hydrocodone/APAP 5/325 [[place] 5/325 (*)] 1 - 2 each PO Q6 PRN #20 tab 02/16/17 [ Last Taken 04/09/17] Lidocaine 5% [Lidoderm 5% Patch] 1 ea TD DAILY #30 patch 02/16/17 [Last Taken ] Ipratropium/Albuterol [Combivent Respimat Inhal [place](*)] 1 inh IH QID #1 mdi [Last Taken Unknown] Oseltamivir Phosphate [Tamiflu 75 mg (*)] 75 mg PO BIDMEAL #9 cap 04/17/17 [ Last Taken Unknown] predniSONE 40 mg PO DAILY #8 tablet 04/17/17 [Last Taken Unknown] Discharge Medications: Refer to the Discharge Home Medication list for PRN reason. - Orders Services needed: Home Care, Registered Nurse, Physical Therapy, Occupational Therapy Home Care Face to Face: I certify that this patient was under my care and that I had the required [id number] encounter meeting the encounter requirements on the discharge day. My findings support the fact that the patient is homebound as defined in Home Care Face to Face Continued: CMS Chapter 7 Medicare Benefits Manual 30.1.1 , The condition of the patient is such that there exists a normal inability to leave home and consequently, leaving home would require a considerable and taxing effort. Isolation Type: Droplet Isolation Oxygen: 3L Diet Recommendation: no restrictions on diet Additional: Tamiflu for 9 doses then stop. Prednisone for 4 more days then stop - Follow Up Care Current Providers and Referrals: Mindy Meza MD [Primary Care Provider] - As per Instructions
[2017-04-17 12:11] VITALS: BP 151/81; PULSE 75; RESP 16; TEMP 97.7
[2017-04-17 14:20] VITALS: O2SAT 91
--- NOTE | 2017-04-17 15:06 | ASDISCHSUM ---
Discharge Information Plan Status:Home with Home Health Medically Cleared to Leave:04/16/2017 Discharge Date:04/17/2017 02:08 PM CM D/C Disposition:Home Health Service ADT D/C Disposition:Home Health Service Projected Discharge Date:04/17/2017 11:00 AM Transportation at D/C:Family Discharge Delay Reason: Follow-Up Date:04/17/2017 11:00 AM Discharge Slot: Final Diagnosis: Placement Information Referral Type:*Home Health Care Services Referral ID:[id number] Provider Name:[facility] Address 1:[address] [address] Address 2: City:[place] Selection Factors: State:[place] Patient Contact Information Contact Name:JEREMI Relationship:Daughter Address: Work Phone: City:[place] Alternate Phone: State/Zip Code:[place] Email: Financial Information Financial Class:Medicare Primary Plan Desc:MEDICARE INPATIENT Primary Plan Number:[id number] Secondary Plan Desc:[employer]/MDR SUPPLEMENT Secondary Plan Number:[id number] Assessment Information LACE LACE Length of stay for Answers: Less than 1 day current admission Acuity / Level of Answers: Yes Care: Did the patient have an inpatient admission? Comorbidities - select Answers: Diabetes (uncontrolled or all that apply controlled) History of falls Other Notes: HTN, Migraines, reactiv e airway disease, hypoxem ia # of Emergency department Answers: 3-4 visits in the last 6 months Score: 11 Date Signed: 04/17/2017 03:06 PM Electronically Signed By:Sangeeta Truong RN Case Management Discharge Plan Note Case Management Discharge Discharge Order Complete? Answers: Yes Patient to Obtain Answers: via Family [facility]ations Transportation Arranged Answers: Family/Friends Faxed Final Orders Answers: Yes Agency/Facility Transfer Answers: Yes Report Printed & Faxed to Receiving Agency Family Notified Answers: Yes Notes: per patient Discharge Comments Notes: 04/17/2017 Case Management Note Met w/pt to discuss recommendations for home RN PT OT. Pt in agreement. Pt chose [facility]. Faxed final orders via all [employer]. Notified by phone. [facility] to accept pt. Pt primary is Dr. Mindy Ross in [place]. Pt paid for [employer]. Date Signed: 04/17/2017 03:05 PM Electronically Signed By:Sangeeta Truong RN Intervention Information
--- NOTE | 2017-04-17 15:23 | GDS ---
[f rep st] DISCHARGE SUMMARY DISCHARGE DIAGNOSES: 1. Influenza B. 2. Acute on possible chronic respiratory failure. 3. Diabetes. 4. Hypertension. 5. Obesity. Body max index 32. HISTORY: The patient is a 76-year-old female, who was recently treated as an outpatient for pneumoni a with a 5-day course of Levaquin. She had persistent difficulties and presented to the emergency ro om. She tested positive for influenza. It is unclear regarding the timeline as to whether or not th is influenza is a new infection versus continuation of her previous respiratory complaints. She was started on Tamiflu. CT angiogram of the chest was negative for PE, and she also did not have any nevaeh dence consistent with pneumonia. She looked quite good on the day of discharge, although she did hav e some persistent hypoxemia. She may have an element of obesity hypoventilation syndrome with superi mposed influenza as the cause. She had a mild COPD exacerbation. She had no further wheezing at the time of hospital discharge. She was ambulating the halls quite comfortably and anxious to discharge home. She was seen by PT/OT and felt to be safe. DISCHARGE MEDICATIONS: Please see computerized record for full detailed list. NEW MEDICATIONS: 1. Tamiflu 75 mg p.o. twice daily, to complete 5 days therapy. 2. Prednisone 40 mg p.o. daily x4 more days. 3. Combivent 1 puff 4 times a day. DISCHARGE INSTRUCTIONS: 1. Oxygen at 3 L continuously. 2. Follow up with primary care. 3. Greater than 30 minutes of time spent arranging this discharge. The patient was seen and examine d by me on day of discharge. /[id number]/MODL
[2017-04-17] MEDS ORDERED: PRAVASTATIN SODIUM 10 MG TAB PO SCH (21:00)
[2017-04-17] MEDS ORDERED: PATCH REMOVAL 1 EA PATCH TD SCH (21:00)
--- NOTE | 2017-04-18 07:50 | CPEKG ---
Heart Rate: 101 RR Interval: 594 P-R Interval: 132 QRSD Interval: 86 QT Interval: 344 QTC Interval: 446 P [place]: 46 QRS [place]: 51 T Wave [place]: 59 EKG Severity - OTHERWISE NORMAL ECG - EKG Impression: SINUS TACHYCARDIA Electronically Signed By: Nathan Wyatt 18-Apr-2017 08:04:30
== END 2017-04-17 14:08 | disposition home health service (06) | DRG 193 ==
LOC: F2W 22:19
PROVIDERS: ADMIT Hospitalist; ATTEND Hospitalist
DX: J10.1 Influenza due to other identified influenza virus with other respiratory manifestations (principal); J96.20 Acute and chronic respiratory failure, unspecified whether with hypoxia or hypercapnia; J44.1 Chronic obstructive pulmonary disease with (acute) exacerbation; E11.9 Type 2 diabetes mellitus without complications; I10 Essential (primary) hypertension; E66.9 Obesity, unspecified; G43.909 Migraine, unspecified, not intractable, without status migrainosus; Z68.38 Body mass index [BMI] 38.0-38.9, adult
CPT/HCPCS: 97161-GP; 97165-GO; G8978-GP-CI; G8979-GP-CI; G8980-GP-CI; G8987-GO-CI; G8988-GO-CI; J1650; J7512; J7613; Q9967